=== PATIENT | male | born 1975 | race Caucasian/White ===

== ENCOUNTER → 2020-12-20 | Day surgery (SDC) | payer OTHER ==
[2020-12-18 13:13] VITALS: BP 147/93
[2020-12-18 13:27] LABS: BASOPHIL % 0.4 % (0.0-0.2); EOSINOPHIL # 0.1 10^3/uL (0.0-0.2); LYMPHOCYTES # 1.48 10^3/uL1 (1.0-4.8); LYMPHOCYTES % 21.8 % (24.0-44.0); MEAN CORP HGB 30.6 pg (26-34); MONOCYTES # 0.5 10^3/uL (0.3-0.8); MONOCYTES % 6.6 % (5.0-12.0); NEUTROPHIL # 4.7 10^3/uL (1.8-7.7); NEUTROPHILS % 70.1 % (41.0-85.0); PLATELET COUNT 264 10^3/uL (150-400); RED CELL DISTRIBUTION WIDTH 12.3 % (11.5-14.5)
[2020-12-18 14:37] LABS: CALCIUM 8.8 mg/dL (8.4-10.5); CARBON DIOXIDE 27.4 mmol/L (20.0-32)
[~2020-12-20] VITALS: Ht 182.9 cm; Wt 92.5 kg
[2020-12-20] VITALS (19 sets, daily range): BP systolic 107–145; BP diastolic 45–98
[~2020-12-20] MED LIST: ANCEF ONE; EXPAREL 266 MG/20 ML VIAL IJ ONE; LACTATED RINGERS 1,000 ML IV SCH; NAROPIN 0.5% 5 MG/ML VIAL ONE; NS 100ML 100 ML IV ONE; SODIUM CHLORIDE IRR BAG IR ONE; SODIUM CHLORIDE IRR BOTTLE IR ONE; SUBLIMAZE ONE; TORADOL ONE
--- NOTE | 2020-12-20 16:49 | PRM.OPH ---
Immediate Post Op Report Immediate Post Op Report Imediate Post Op Report Preop diagnosis Right inguinal hernia Postoperative diagnosis Right direct/indirect inguinal hernia Procedure Laparoscopic right inguinal hernia repair with mesh Surgeon Dr. Chairez Anesthesia General EBL 25 mL Mesh Bard 3D max mesh medium for the right side Complication None OLIVER CHAIREZ MD Dec 20, 2020 16:49
--- NOTE | 2020-12-20 16:57 | PRM.OPH ---
OPERATIVE REPORT OPERATIVE REPORT Procedure The patient was initially seen and identified in the preoperative area. After confirming the identity, H&P, consents, and making sure that all her questions were answered, the patient was transferred from the preop area to the operating theater. He was then transferred from their stretcher to the operating room table and placed in supine position. The patient was given general anesthesia. A tap block was placed by anesthesia. Alexandra catheter was also placed by nursing. A sterile field was created after prepping the abdomen with ChloraPrep in the perineum and genitals with Betadine and a sterile field was created in the standard fashion. An incision just above the umbilicus was then made appropriate for a 12 mm trocar. Then the Veress needle was inserted into the abdominal cavity and the abdomen was insufflated to 15 mmHg. The 12 mm trocar was then placed into the abdominal cavity under direct visualization using Adeze system. We confirm there was no signs of any intra-abdominal injury. Then 2 additional incisions were made one on the right and one on the left side of the 12 mm trocar just just slightly below. Both these were for 5 mm trochars the one on the left was then placed under direct visualization into the abdominal cavity one on the right was then placed through the rectus muscle but not through the peritoneum or posterior fascia. The insufflation tubing was then connected to this site and the area was insufflated to help with basic dissection plane. Then once this was done the trocar was then placed into the abdominal cavity under direct visualization. An incision with scissors was then made through the peritoneum and posterior fascia. We then dissected our way up to the area where the right inguinal hernia was. We had checked the left side which did not have any evidence of a hernia. On initial examinations it appeared as if he just had a direct hernia until as we were dissecting it out and then noticed what appeared to be a large cord lipoma on the left. Once we dissected out the direct hernia we then turned our attention to the left side and dissected out the cord lipoma. Once we are happy that a big enough pocket had been dissected out and that we could identify the right pubic tubercle, inguinal ligament, and Jimy's ligament a medium piece of the Bard 3D max mesh for the right side was brought into the field and placed so that it would have good overhang over the defect. It was then tacked into Jimy's and the inguinal ligament. Tacked along the superior edge into the rectus muscle the peritoneum was then brought back up and the peritoneum was tacked back into the appropriate location. There is no's obvious signs of gapping. The replacement of the perineum was done under a pressure of 10 mmHg. The pressure was then brought back up to 15 mmHg we reexamined the area to make sure there is no signs of any bleeding or any other abnormalities noted. We then remove the 12 mm trocar. Using the Tyrese Nichols device we passed a 0 Vicryl suture and tied it closing the 12 mm defect. Then the abdomen was deinsufflated the remaining 2 trochars were removed and the skin was closed using 4-0 Monocryl suture. The abdomen was then washed and dried and Dermabond placed over all the incisions. Patient was handed back to anesthesia to be awoken from general anesthesia, nursing to remove the Alexandra, and then be transferred to the PACU for further recovery. Patient tolerated the procedure well. OLIVER BRADLEY MD Dec 20, 2020 16:57
== END | disposition home or self-care (01) ==
LOC: SDC 05:48
PROVIDERS: ATTEND Surgery
DX: K40.90 Unilateral inguinal hernia, without obstruction or gangrene, not specified as recurrent (principal); D17.6 Benign lipomatous neoplasm of spermatic cord; Z79.01 Long term (current) use of anticoagulants; Z72.89 Other problems related to lifestyle; Z98.52 Vasectomy status; Z98.890 Other specified postprocedural states
CPT/HCPCS: 36415; 49650; 64448; 80053; 85025; 85610; 85730; A4217; A4649; C1781; J0690; J1885; J2795; J3010; C9290